=== PATIENT | male | born 1985 | race Two or more races ===

== ENCOUNTER 2019-12-18 20:54 | Emergency (ER) | payer BC ==
[~2019-12-18] VITALS: Ht 167.6 cm; Wt 74.0 kg
[2019-12-18 22:00] LABS: BASOPHILS # (AUTO) 0.02 x10^3/uL (0-0.1); BASOPHILS % (AUTO) 0 % (0-1); EOSINOPHILS # (AUTO) 0.26 x10^3/uL (0-0.4); EOSINOPHILS % (AUTO) 3 % (1-7); LYMPHOCYTES % (AUTO) 32 % (22-44); MD NO; MEAN CORPUSCULAR HGB CONC 34.5 g/dL (33.2-36.2); MEAN CORPUSCULAR VOLUME 95.6 fL (81-97); MEAN PLATELET VOLUME 8.3 fL (7.4-10.4); MONOCYTES # (AUTO) 0.52 x10^3/uL (0.2-0.8); MONOCYTES % (AUTO) 7 % (2-9); NEUTROPHILS # (AUTO) 4.35 x10^3/uL (1.8-6.8); NEUTROPHILS % (AUTO) 58 % (42-75); PLATELET COUNT 143 x10^3/uL (130-400); RED BLOOD COUNT 4.58 x10^6/uL (4.38-5.82); RED CELL DISTRIBUTION WIDTH 11.6 % (9.4-14.8)
[2019-12-18 22:52] VITALS: BP 117/61
== END 2019-12-18 22:54 | disposition home or self-care (01) ==
LOC: ED 22:45
DX: S39.011A Strain of muscle, fascia and tendon of abdomen, initial encounter (principal); S39.013A Strain of muscle, fascia and tendon of pelvis, initial encounter; X58.XXXA Exposure to other specified factors, initial encounter; Y93.89 Activity, other specified; Y92.89 Other specified places as the place of occurrence of the external cause; Y99.8 Other external cause status
CPT/HCPCS: 36415; 85025; 99283